=== PATIENT | male | born 1955 | race Caucasian/White ===

== ENCOUNTER 2019-06-10 01:35 | Emergency (ER) | payer MEDICAID, MEDICARE ==
--- NOTE | 2019-06-10 10:40 | RADIOLOGY REPORT (SQ) ---
EXAM DESCRIPTION: CHEST SINGLE VIEW COMPLETED DATE/TIME: 06/10/2019 10:28 am REASON FOR STUDY: altered mental status COMPARISON: AP chest 06/02/2019 EXAM PARAMETERS: NUMBER OF VIEWS: One view. TECHNIQUE: Single frontal radiographic view of the chest acquired. RADIATION DOSE: NA LIMITATIONS: None. FINDINGS: LUNGS AND PLEURA: No opacities, masses or pneumothorax. No pleural effusion. MEDIASTINUM AND HILAR STRUCTURES: No masses. Contour normal. HEART AND VASCULAR STRUCTURES: Heart normal in size. Normal vasculature. BONES: No acute findings. HARDWARE: None in the chest. OTHER: No other significant finding. IMPRESSION: NO ACUTE RADIOGRAPHIC FINDING IN THE CHEST. TECHNICAL DOCUMENTATION: JOB ID: [id number] [employer]- All Rights Reserved Reading location - IP/workstation name: [email or web address]
[2019-06-10 10:46] LABS: ABSOLUTE LYMPHOCYTES (AUTO) 0.8 10^3/uL (0.5-4.7); ABSOLUTE MONOCYTES (AUTO) 0.8 10^3/uL (0.1-1.4); ABSOLUTE NEUT (AUTO) 4.7 10^3/uL (1.7-8.2); BASOPHILS % (AUTO) 0.5 % (0-2); EOSINOPHILS % (AUTO) 0.7 % (0-6); HEMATOCRIT 35.3 % (37.9-51.0); LYMPHOCYTES % (AUTO) 12.8 % (13-45); MEAN CORPUSCULAR HEMOGLOBIN 30.3 pg (27.0-33.4); MEAN CORPUSCULAR HGB CONC 33.9 g/dL (32.0-36.0); MEAN CORPUSCULAR VOLUME 89 fl (80-97); MONOCYTES % (AUTO) 12.7 % (3-13); PLATELET COUNT 200 10^3/uL (150-450); RED BLOOD COUNT 3.95 10^6/uL (4.35-5.55); RED CELL DISTRIBUTION WIDTH 13.5 % (11.5-14.0); SEGMENTED NEUTROPHILS % (AUTO) 73.3 % (42-78); TOTAL CELLS COUNTED % (AUTO) 100 %; WHITE BLOOD COUNT 6.5 10^3/uL (4.0-10.5)
[2019-06-10 11:07] LABS: ALBUMIN 3.6 g/dL (3.5-5.0); ALKALINE PHOSPHATASE 58 U/L (38-126); ANION GAP 9 (5-19); ASPARTATE AMINO TRANSFERASE 37 U/L (17-59); BILIRUBIN,DIRECT 0.2 mg/dL (0.0-0.4); BILIRUBIN,TOTAL 0.6 mg/dL (0.2-1.3); BLOOD UREA NITROGEN 18 mg/dL (7-20); CALCIUM 8.4 mg/dL (8.4-10.2); CARBON DIOXIDE 27 mmol/L (22-30); CHLORIDE 104 mmol/L (98-107); GLUCOSE 109 mg/dL (75-110); POTASSIUM 3.7 mmol/L (3.6-5.0); TOTAL PROTEIN 6.5 g/dL (6.3-8.2)
[2019-06-10 11:08] LABS: ACETAMINOPHEN < 10 ug/mL (10-30); ALCOHOL < 10 mg/dL (NONE DETECTED); SALICYLATE < 1.0 mg/dL (2.0-20.0)
[2019-06-10 11:27] LABS: APPEARANCE,URINE CLEAR; BILIRUBIN,URINE NEGATIVE (NEGATIVE); COLOR,URINE YELLOW; GLUCOSE, URINE NEGATIVE (NEGATIVE); KETONES,URINE NEGATIVE (NEGATIVE); PROTEIN,URINE NEGATIVE (NEGATIVE); URINE SPECIFIC GRAVITY 1.019
[2019-06-10 11:42] LABS: URINE AMPHETAMINES SCREEN NEGATIVE; URINE BARBITURATES SCREEN NEGATIVE; URINE BENZODIAZEPINES SCREEN NEGATIVE; URINE COCAINE SCREEN NEGATIVE; URINE MARIJUANA (THC) SCREEN NEGATIVE; URINE METHADONE SCREEN NEGATIVE; URINE PHENCYCLIDINE SCREEN NEGATIVE
--- NOTE | 2019-06-10 12:11 | ER Document Report ---
ED General - General Chief Complaint: Altered Mental Status Stated Complaint: INSOMNIA Time Seen by Provider: 06/10/19 10:04 Notes: 63-year-old male presents from [facility] complaining of insomnia and not staying in bed. Patient has a history of bipolar, hypertension, insomnia. Per facility patient was running around, not sleeping, and was found by staff in the [place] after running outside. Patient is at baseline per paperwork. Patient has no complaints. TRAVEL OUTSIDE OF THE [place] IN LAST 30 DAYS: No - Related Data Allergies/Adverse Reactions: No Known Allergies Allergy (Unverified 06/02/19 13:57) Past Medical History - Social History Smoking Status: Unknown if Ever Smoked Family History: Reviewed & Not Pertinent Patient has suicidal ideation: No Patient has homicidal ideation: No - Past Medical History Cardiac Medical History: Reports: Hx Hypertension Musculoskeletal Medical History: Reports Hx Arthritis Psychiatric Medical History: Reports: Hx Bipolar Disorder Review of Systems - Review of Systems -: Yes ROS unobtainable due to patient's medical condition Physical Exam - Vital signs Vitals: Temp Pulse Resp BP Pulse Ox 97.9 F 72 16 96/69 L 99 06/10/19 01:36 06/10/19 01:36 06/10/19 01:36 06/10/19 01:36 06/10/19 01:36 - Notes Notes: GENERAL: Well-appearing, well-nourished and in no acute distress. HEAD: Atraumatic, normocephalic. EYES: Extraocular movements intact, sclera anicteric, conjunctiva are normal. NECK: Normal range of motion, supple without lymphadenopathy or JVD. LUNGS: Breath sounds clear to auscultation bilaterally and equal. No wheezes rales or rhonchi. HEART: Regular rate and rhythm without murmurs, rubs or gallops. ABDOMEN: Soft, nontender. No guarding, no rebound. No masses appreciated. EXTREMITIES: Normal range of motion, no pitting or edema. No clubbing or cyanosis. NEUROLOGICAL: Patient is only alert to himself. Cranial nerves II through XII grossly intact. Normal speech, normal gait. PSYCH: Normal mood, normal affect. SKIN: Abrasions noted to bilateral arms. Warm, Dry, normal turgor, no rashes or lesions noted. Course - Re-evaluation Re-evalutation: 06/10/19 nontoxic, well-appearing 63-year-old male presents from [facility] for insomnia, ability to and being found with by staff after running outside. Patient has some superficial abrasions from being in the [place]. Work- up initiated including EKG, chest x-ray, UA, lab work. 06/10/19 13:45 patient's work-up including CT of the head is reassuring. Patient to be discharged back to [facility]. Return precautions given. Patient given follow-up with primary care doctor. - Vital Signs Vital signs: Temp Pulse Resp BP Pulse Ox 99.0 F 84 16 137/65 H 93 06/10/19 07:01 06/10/19 07:01 06/10/19 07:01 06/10/19 07:01 06/10/19 07:01 - Laboratory Result Diagrams: 06/10/19 10:25 06/10/19 10:25 Laboratory results interpreted by me: 06/10/19 06/10/19 06/10/19 10:25 10:25 10:40 RBC 3.95 L Hgb 12.0 L Hct 35.3 L Lymph % (Auto) 12.8 L Urine Urobilinogen 4.0 H Salicylates < 1.0 L Acetaminophen < 10 L Discharge - Discharge Clinical Impression: Encounter for medical screening examination, Abrasion of forearm without infection Insomnia Qualifiers: Insomnia type: unspecified Qualified Code(s): G47.00 - Insomnia, unspecified Condition: Stable Disposition: HOME-SNF (ED ONLY) Additional Instructions: Your work-up today including lab work, chest x-ray, urinalysis, and CT of your head was reassuring. Please follow-up with your primary care doctor in 3 to 5 days or with clinic listed. Return to ER for any worsening symptoms, including fever, increased confusion, chest pain, shortness of breath, abdominal pain, nausea/vomiting, diarrhea, constipation, urinary symptoms, or any other symptoms that are concerning to you. Referrals: JEFFREY GUZMAN MD [COMMUNITY BASED STAFF] - Follow up in 3-5 days
--- NOTE | 2019-06-10 13:14 | RADIOLOGY REPORT (SQ) ---
EXAM DESCRIPTION: CT HEAD WITHOUT COMPLETED DATE/TIME: 06/10/2019 12:59 pm REASON FOR STUDY: AMS COMPARISON: CT of the head without contrast from 06/02/2019. TECHNIQUE: Axial images acquired through the brain without intravenous contrast. Images reviewed wi th bone, brain and subdural windows. Additional sagittal and coronal reconstructions were generated. Images stored on PACS. All CT scanners at this facility use dose modulation, iterative reconstruction, and/or weight based d osing when appropriate to reduce radiation dose to as low as reasonably achievable (ALARA). [facility]: Dose Right [facility]: CareDose [facility]: Dose Right [facility]: Teradose 4D [facility]: [employer] RADIATION DOSE: CT Rad equipment meets quality standard of care and radiation dose reduction techniq ues were employed. CTDIvol: 53.2 mGy. DLP: 1097 mGy-cm. LIMITATIONS: None. FINDINGS: There is no acute intracranial hemorrhage, vascular territorial infarct, extra-axial fluid collection, mass effect or midline shift. There is no effacement of the cerebral sulci or basal sub arachnoid cisterns. The murcia-white matter differentiation is preserved. The caliber the ventricles is concordant with the degree of sulcation. The orbits and globes are normal. There is no fracture of the calvarium. The orbits and globes are intact. There is no opacification of the paranasal sinuses. IMPRESSION: No acute intracranial abnormality. EVIDENCE OF ACUTE STROKE: NO. COMMENT: Quality ID # 436: Final reports with documentation of one or more dose reduction techniques (e.g., Automated exposure control, adjustment of the mA and/or kV according to patient size, use of iterative reconstruction technique) TECHNICAL DOCUMENTATION: JOB ID: [id number] [employer]- All Rights Reserved Reading location - IP/workstation name: [email or web address]
[2019-06-10 16:21] VITALS: BP 142/79
--- NOTE | 2019-06-10 19:28 | EKG REPORT ---
SEVERITY:- NORMAL ECG - SINUS RHYTHM : Confirmed by: Devi Vargas MD 10-Jun-2019 19:28:07
== END 2019-06-10 16:22 ==
LOC: ER 01:35
DX: G47.00 Insomnia, unspecified (principal); S50.819A Abrasion of unspecified forearm, initial encounter; S40.812A Abrasion of left upper arm, initial encounter; S40.811A Abrasion of right upper arm, initial encounter; X58.XXXA Exposure to other specified factors, initial encounter; I10 Essential (primary) hypertension
CPT/HCPCS: 36415; 51701; 70450; 71045; 80053; 80307; 81001; 83735; 84484; 85025; 93005; 93010; 99285

== ENCOUNTER → 2020-01-31 | Outpatient (CLI) | payer MEDICARE, MEDICAID ==
--- NOTE | 2020-01-31 16:46 | RADIOLOGY REPORT (SQ) ---
EXAM DESCRIPTION: CT ABD/PELVIS NO ORAL OR IV IMAGES COMPLETED DATE/TIME: 01/31/2020 4:08 pm REASON FOR STUDY: R10.9 UNSPECIFIED ABDOMINAL PAIN R10.9 UNSPECIFIED ABDOMINAL PAIN COMPARISON: None. TECHNIQUE: CT scan of the abdomen and pelvis performed without intravenous or oral contrast. Images reviewed with lung, soft tissue, and bone windows. Reconstructed coronal and sagittal MPR images revi ewed. All images stored on PACS. All CT scanners at this facility use dose modulation, iterative reconstruction, and/or weight based d osing when appropriate to reduce radiation dose to as low as reasonably achievable (ALARA). [facility]: Dose Right [facility]: CareDose [facility]: Dose Right [facility]: Teradose 4D [facility]: Smart ComQi RADIATION DOSE: mGy. LIMITATIONS: None. FINDINGS: LOWER CHEST: Small pericardial effusion. Very small bilateral pleural effusions. NON-CONTRASTED LIVER, SPLEEN, ADRENALS: The liver is somewhat hypoattenuated. No masses. Spleen and adrenal glands are normal. PANCREAS: No masses. No peripancreatic inflammatory changes. GALLBLADDER: Contracted. No stones. RIGHT KIDNEY AND URETER: No suspicious masses. Assessment limited by lack of IV contrast. No signif icant calcifications. No hydronephrosis or hydroureter. LEFT KIDNEY AND URETER: No suspicious masses. Assessment limited by lack of IV contrast. Small nono bstructing intrarenal calculus. No hydronephrosis or hydroureter. AORTA AND RETROPERITONEUM: No aneurysm. No retroperitoneal masses or adenopathy. BOWEL AND PERITONEAL CAVITY: Sigmoid diverticulosis. No acute inflammation. No obvious bowel mass. APPENDIX: Normal. PELVIS, BLADDER, AND ABDOMINAL WALL:No abnormal masses. No free fluid. Bladder normal. Small uncompl icated inguinal hernias. BONES: No significant findings. OTHER: No other significant finding. IMPRESSION: Small pericardial effusion. Minimal pleural effusions. Hepatic steatosis. Small nonob structing left intrarenal calculus. Diverticulosis coli. Uncomplicated inguinal hernias. COMMENT: Quality ID # 436: Final reports with documentation of one or more dose reduction techniques (e.g., Automated exposure control, adjustment of the mA and/or kV according to patient size, use of iterative reconstruction technique) TECHNICAL DOCUMENTATION: JOB ID: [id number] 2010 [employer]- All Rights Reserved Reading location - IP/workstation name: [email or web address]
== END ==
LOC: RAD 15:48
PROVIDERS: ATTEND Clinical Nurse Specialist Adult Health
DX: R10.9 Unspecified abdominal pain (principal); Z87.442 Personal history of urinary calculi
CPT/HCPCS: 74176

== ENCOUNTER 2020-05-20 07:36 | Inpatient (IN) | payer MEDICARE, MEDICAID ==
[2020-05-20 08:11] LABS: ABSOLUTE BASOPHILS # (AUTO) 0.1 10^3/uL (0.0-0.2); ABSOLUTE LYMPHOCYTES (AUTO) 1.7 10^3/uL (0.5-4.7); ABSOLUTE MONOCYTES (AUTO) 1.3 10^3/uL (0.1-1.4); ABSOLUTE NEUT (AUTO) 15.6 10^3/uL (1.7-8.2); BASOPHILS % (AUTO) 0.5 % (0-2); EOSINOPHILS % (AUTO) 0.1 % (0-6); HEMATOCRIT 41.9 % (37.9-51.0); HEMOGLOBIN 14.2 g/dL (13.5-17.0); LYMPHOCYTES % (AUTO) 9.1 % (13-45); MEAN CORPUSCULAR HEMOGLOBIN 29.7 pg (27.0-33.4); MEAN CORPUSCULAR HGB CONC 33.8 g/dL (32.0-36.0); MEAN CORPUSCULAR VOLUME 88 fl (80-97); MONOCYTES % (AUTO) 6.8 % (3-13); PLATELET COUNT 301 10^3/uL (150-450); RED BLOOD COUNT 4.77 10^6/uL (4.35-5.55); RED CELL DISTRIBUTION WIDTH 14.2 % (11.5-14.0); SEGMENTED NEUTROPHILS % (AUTO) 83.5 % (42-78); TOTAL CELLS COUNTED % (AUTO) 100 %; WHITE BLOOD COUNT 18.7 10^3/uL (4.0-10.5)
[2020-05-20] MEDS ORDERED: NORMAL SALINE 500 ML IV ONE (08:16)
[2020-05-20 08:33] LABS: ALBUMIN 4.2 g/dL (3.5-5.0); ALKALINE PHOSPHATASE 84 U/L (38-126); ANION GAP 10 (5-19); ASPARTATE AMINO TRANSFERASE 60 U/L (17-59); BILIRUBIN,DIRECT 0.2 mg/dL (0.0-0.4); BILIRUBIN,TOTAL 0.7 mg/dL (0.2-1.3); BLOOD UREA NITROGEN 27 mg/dL (7-20); CALCIUM 9.4 mg/dL (8.4-10.2); CARBON DIOXIDE 22 mmol/L (22-30); CHLORIDE 108 mmol/L (98-107); GLUCOSE 144 mg/dL (75-110); POTASSIUM 3.6 mmol/L (3.6-5.0); TOTAL PROTEIN 7.6 g/dL (6.3-8.2)
[2020-05-20 08:34] LABS: ALCOHOL < 10 mg/dL (NONE DETECTED)
--- NOTE | 2020-05-20 08:36 | EKG REPORT ---
SEVERITY:- NORMAL ECG - SINUS RHYTHM : Confirmed by: Keenan Khoury MD 20-May-2020 08:35:47
--- NOTE | 2020-05-20 08:58 | RADIOLOGY REPORT (SQ) ---
EXAM DESCRIPTION: CT HEAD WITHOUT IMAGES COMPLETED DATE/TIME: 05/20/2020 5:32 am REASON FOR STUDY: altered mental status COMPARISON: None. TECHNIQUE: Axial images acquired through the brain without intravenous contrast. Images reviewed wi th bone, brain and subdural windows. Additional sagittal and coronal reconstructions were generated. Images stored on PACS. All CT scanners at this facility use dose modulation, iterative reconstruction, and/or weight based d osing when appropriate to reduce radiation dose to as low as reasonably achievable (ALARA). [facility]: Dose Right [facility]: CareDose [facility]: Dose Right [facility]: Teradose 4D [facility]: Smart Skedo RADIATION DOSE: CT Rad equipment meets quality standard of care and radiation dose reduction techniq ues were employed. CTDIvol: 53.2 mGy. DLP: 1017 mGy-cm. mGy. LIMITATIONS: None. FINDINGS: VENTRICLES: Normal size and contour. CEREBRUM: No masses. No hemorrhage. No midline shift. No evidence for acute infarction. Few scatte red areas of low density in the white matter most likely chronic small vessel ischemic changes. Foca l gliosis in the left occipital lobe posterior to the posterior horn left lateral ventricle likely du e to chronic infarct. CEREBELLUM: No masses. No hemorrhage. No alteration of density. No evidence for acute infarction. EXTRAAXIAL SPACES: No fluid collections. No masses. ORBITS AND GLOBE: No intra- or extraconal masses. Normal contour of globe without masses. CALVARIUM: No fracture. PARANASAL SINUSES: No fluid or mucosal thickening. SOFT TISSUES: No mass or hematoma. OTHER: No other significant finding. IMPRESSION: 1. No acute intracranial abnormality on noncontrast CT. 2. Small chronic appearing infarct left occipital lobe. EVIDENCE OF ACUTE STROKE: NO. COMMENT: Quality ID # 436: Final reports with documentation of one or more dose reduction techniques (e.g., Automated exposure control, adjustment of the mA and/or kV according to patient size, use of iterative reconstruction technique) TECHNICAL DOCUMENTATION: JOB ID: [id number] [employer]- All Rights Reserved Reading location - IP/workstation name: [email or web address]
--- NOTE | 2020-05-20 09:03 | RADIOLOGY REPORT (SQ) ---
EXAM DESCRIPTION: ACUTE ABDOMEN SERIES IMAGES COMPLETED DATE/TIME: 05/20/2020 5:39 am REASON FOR STUDY: abd distension COMPARISON: CT abdomen pelvis 01/31/2020. NUMBER OF VIEWS: Two views. TECHNIQUE: Supine and erect/decubitus radiographic images of the abdomen acquired. LIMITATIONS: Hemidiaphragms are not fully included. FINDINGS: FREE AIR: No definite free air, though evaluation is degraded due to lack of inclusion of portions of the upper abdomen. LUNG BASES: Lung bases are not included. BOWEL GAS PATTERN: Nonspecific bowel gas pattern. There is a loop of prominent small bowel in the la teral left abdomen. Bowel gas pattern is otherwise not obstructive. Moderate stool in the visualize d colon. CALCIFICATIONS: Probable phlebolith in the left pelvis. SOFT TISSUES: No gross mass or suggestion of organomegaly. HARDWARE: None in the abdomen. BONES: No acute fracture. No worrisome bone lesions. OTHER: No other significant finding. IMPRESSION: Degraded evaluation for free air given lack of inclusion of the full upper abdomen/hemid iaphragms. Visualize bowel gas pattern is nonspecific with a single prominent loop of small bowel in the lower pole left abdomen. Bowel gas pattern is otherwise not obstructive. Moderate stool in the visualized colon TECHNICAL DOCUMENTATION: JOB ID: [id number] 2010 [employer]- All Rights Reserved Reading location - IP/workstation name: [email or web address]
[2020-05-20] MEDS ORDERED: CEFEPIME 2 GM/D5W RTU 2 GM/50 ML RTUPB IV ONE (09:28)
[2020-05-20] MEDS ORDERED: VANCOMYCIN HCL INJ 1000 MG VIAL IV ONE (09:29)
[2020-05-20] MEDS ORDERED: NORMAL SALINE 1000 ML 1,000 ML IV ONE ×2 (09:30→14:10)
[2020-05-20 10:15] LABS: APPEARANCE,URINE SLIGHTLY-CLOUDY; BILIRUBIN,URINE NEGATIVE (NEGATIVE); CALCIUM OXALATE CRYSTALS,URINE RARE /HPF; COLOR,URINE YELLOW; GLUCOSE, URINE NEGATIVE (NEGATIVE); KETONES,URINE NEGATIVE (NEGATIVE); LEUKOCYTE ESTERASE,URINE NEGATIVE (NEGATIVE); NITRITE,URINE NEGATIVE (NEGATIVE); PROTEIN,URINE NEGATIVE (NEGATIVE); URINE SPECIFIC GRAVITY 1.018; UROBILINOGEN,URINE NEGATIVE mg/dL (<2.0)
[2020-05-20 10:35] LABS: URINE AMPHETAMINES SCREEN NEGATIVE; URINE BARBITURATES SCREEN NEGATIVE; URINE BENZODIAZEPINES SCREEN NEGATIVE; URINE COCAINE SCREEN NEGATIVE; URINE MARIJUANA (THC) SCREEN NEGATIVE; URINE METHADONE SCREEN NEGATIVE; URINE PHENCYCLIDINE SCREEN NEGATIVE
[2020-05-20] MEDS ORDERED: ACETAMINOPHEN 325 MG TABLET PO PRN (13:03)
[2020-05-20] MEDS ORDERED: [UNRECOGNIZED DRUG - REMARK] IM SCH (13:15)
[2020-05-20] MEDS ORDERED: (PENDING PHARMACY ID) (Gabapentin [Gabapentin] 600 MG Tablet) PO SCH (14:00)
[2020-05-20] MEDS ORDERED: LORAZEPAM INJ 2 MG/1 ML VIAL IV ONE ×2 (14:08→15:18)
[2020-05-20] MEDS ORDERED: DIPHENHYDRAMINE HCL 50 MG/ML VIAL IV ONE (14:09)
[2020-05-20] MEDS: BACLOFEN 10 MG TABLET PO SCH ×2 (14:14→18:25)
[2020-05-20] MEDS: GABAPENTIN 300 MG CAPSULE PO SCH ×2 (14:14→23:00)
[2020-05-20] MEDS ORDERED: ARIPIPRAZOLE 5 MG TABLET GT STA (14:14)
--- NOTE | 2020-05-20 15:01 | RADIOLOGY REPORT (SQ) ---
EXAM DESCRIPTION: CT CHEST WITHOUT IMAGES COMPLETED DATE/TIME: 05/20/2020 11:48 am REASON FOR STUDY: bibasilar infiltrates COMPARISON: Single-view chest 06/10/2019. TECHNIQUE: CT scan performed of the chest without intravenous contrast. Images reviewed with lung, soft tissue and bone windows. Reconstructed coronal and sagittal MPR images reviewed. All images st ored on PACS. All CT scanners at this facility use dose modulation, iterative reconstruction, and/or weight based d osing when appropriate to reduce radiation dose to as low as reasonably achievable (ALARA). [facility]: Dose Right [facility]: CareDose [facility]: Dose Right [facility]: Teradose 4D [facility]: Smart [employer] RADIATION DOSE: CT Rad equipment meets quality standard of care and radiation dose reduction techniq ues were employed. CTDIvol: 19.3 mGy. DLP: 681 mGy-cm. mGy. LIMITATIONS: Motion artifact. FINDINGS: LUNGS AND PLEURA: Mild bilateral dependent opacities likely representing atelectasis. The re are small bilateral pleural effusions. No pneumothorax. No suspicious pulmonary nodule or mass l esion identified. HILAR AND MEDIASTINAL STRUCTURES: No identified masses or abnormal nodes. No obvious aneurysm. HEART AND VASCULAR STRUCTURES: No aneurysm. No pericardial effusion. UPPER ABDOMEN: Hepatic steatosis. THYROID AND OTHER SOFT TISSUES: Hypodense right thyroid nodule measuring approximately 1 cm. BONES: No significant finding. HARDWARE: None in the chest. OTHER: No other significant findings. IMPRESSION: 1. Small bilateral pleural effusions. Bilateral dependent opacities probably represent ing atelectasis. 2. Hepatic steatosis. TECHNICAL DOCUMENTATION: JOB ID: [id number] Quality ID # [id number]: Final reports with documentation of one or more dose reduction techniques (e.g., Au tomated exposure control, adjustment of the mA and/or kV according to patient size, use of iterative reconstruction technique) 2010 [employer]- All Rights Reserved Reading location - IP/workstation name: [email or web address]
--- NOTE | 2020-05-20 15:36 | ER Document Report ---
Entered by OLIVE MORA SCRIBE 05/20/20 0814 Acting as scribe for:ASYA CLINE MD ED General - General Chief Complaint: Altered Mental Status Stated Complaint: ALTERED MENTAL STATUS Primary Care Provider: LORY FELICIANO ANP [Primary Care Provider] - Follow up as needed Mode of Arrival: Medic Information source: Patient, Legal Guardian - [facility] Notes: This 64 year old male patient who [facility] has guardianship of presents to the emergency department today with concerns of a "shift in mental status" over the last few weeks. [facility] called and said that he has had his bipolar meds changed within the last few weeks but they are unable to state what these changes were. Patient is alert and oriented, answers questions appropriately, has no complaints. He denies any neck pain, headache, pain anywhere, fevers, chills, nausea, vomiting, or diarrhea. Patient does mention he might have a little bit of constipation. TRAVEL OUTSIDE OF THE [place] IN LAST 30 DAYS: No - Related Data Allergies/Adverse Reactions: No Known Allergies Allergy (Unverified 06/02/19 13:57) Home Medications: Lipitor, Cogentin, Buspar, Cymbalta, Tricor, [place], Zestril, Risperdal, Zoloft, Xifaran, Neurontin Past Medical History - General Information source: Patient, Legal Guardian - [facility] - Social History Smoking Status: Unknown if Ever Smoked Cigarette use (# per day): No Lives with: Family Family History: Reviewed & Not Pertinent - Past Medical History Cardiac Medical History: Reports: Hx Hypertension Musculoskeletal Medical History: Reports Hx Arthritis, Reports Other - chronic back pain Psychiatric Medical History: Reports: Hx Bipolar Disorder Surgical Hx: Negative Review of Systems - Review of Systems Constitutional: See HPI, Other - altered mental status per [facility]. denies: Chills, Fever EENT: No symptoms reported Cardiovascular: No symptoms reported Respiratory: No symptoms reported Gastrointestinal: See HPI, Constipation - +/-. denies: Abdominal pain, Diarrhea, Nausea, Vomiting Genitourinary: No symptoms reported Male Genitourinary: No symptoms reported Musculoskeletal: denies: Neck pain Skin: No symptoms reported Hematologic/Lymphatic: No symptoms reported Neurological/Psychological: denies: Headaches -: Yes All other systems reviewed and negative Physical Exam - Vital signs Vitals: Temp Pulse Resp BP Pulse Ox 98.3 F 98 16 129/73 H 92 05/20/20 07:49 05/20/20 07:49 05/20/20 07:49 05/20/20 07:49 05/20/20 07:49 - Notes Notes: Physical Exam: General: Alert, appears well. Knows he is in the hospital. Non-focal neurological exam. HEENT: Normocephalic. Atraumatic. PERRL. Extraocular movements intact. Oropharynx clear. Neck: Supple. Non-tender. Respiratory: No respiratory distress. Clear and equal breath sounds bilaterally. Cardiovascular: Regular rate and rhythm. Abdominal: Normal Inspection. Non-tender. No distension. Normal Bowel Sounds. Back: No gross abnormalities. Extremities: Moves all four extremities. Upper extremities: Normal inspection. Normal ROM. Electric Track Switch Maintainer strength 5 out of 5 bilaterally. Lower extremities: Normal inspection. No edema. Normal ROM. Able to raise both legs off the bed and hold them in the air. Neurological: Normal cognition. AAOx4. Normal speech. Psychological: Normal affect. Normal Mood. Skin: Warm. Dry. Normal color. Course - Re-evaluation Re-evalutation: 05/20/20 15:28 Patient with mental status changes of bipolar/schizophrenia and has recently had changes in medications to try to further manage his mental illness. Today we have been unable to learn exactly what changes in medications have occurred in the past 2 weeks. Patient presents because of worsening mental status changes today. Patient is a guardian of the [facility] and is a resident at [facility] which he has been there for a number of years. - Vital Signs Vital signs: Temp Pulse Resp BP Pulse Ox 98.5 F 96 22 H 148/91 H 97 05/20/20 11:06 05/20/20 08:00 05/20/20 11:00 05/20/20 11:00 05/20/20 11:00 05/20/20 15:29 Vital signs stable - Laboratory Result Diagrams: 05/20/20 07:59 05/20/20 07:50 Laboratory results interpreted by me: 05/20/20 05/20/20 07:50 07:59 WBC 18.7 H RDW 14.2 H Lymph % (Auto) 9.1 L Absolute Neuts (auto) 15.6 H Seg Neutrophils % 83.5 H Chloride 108 H BUN 27 H Creatinine 1.74 H Est GFR ( Amer) 48 L Est GFR (MDRD) Non-Af 40 L Glucose 144 H AST 60 H ALT 67 H 05/20/20 15:29 Laboratory shows a leukocytosis. And a BUN of 27 creatinine 1.7 with an acute dehydration. 05/20/20 15:29 05/20/20 07:59 05/20/20 07:50 MCV 88 fl (80-97) 05/20/20 07:59 MCH 29.7 pg (27.0-33.4) 05/20/20 07:59 MCHC 33.8 g/dL (32.0-36.0) 05/20/20 07:59 RDW 14.2 % (11.5-14.0) H 05/20/20 07:59 Seg Neutrophils % 83.5 % (42-78) H 05/20/20 07:59 Chloride 108 mmol/L (98-107) H 05/20/20 07:50 Carbon Dioxide 22 mmol/L (22-30) 05/20/20 07:50 Anion Gap 10 (5-19) 05/20/20 07:50 Est GFR ( Amer) 48 (>60) L 05/20/20 07:50 Glucose 144 mg/dL (75-110) H 05/20/20 07:50 Calcium 9.4 mg/dL (8.4-10.2) 05/20/20 07:50 Magnesium 2.2 mg/dL (1.6-2.3) 05/20/20 07:50 Total Bilirubin 0.7 mg/dL (0.2-1.3) 05/20/20 07:50 AST 60 U/L (17-59) H 05/20/20 07:50 Alkaline Phosphatase 84 U/L (38-126) 05/20/20 07:50 Total Protein 7.6 g/dL (6.3-8.2) 05/20/20 07:50 Albumin 4.2 g/dL (3.5-5.0) 05/20/20 07:50 Lipase 24.9 U/L (23-300) 05/20/20 07:50 Urine Color YELLOW 05/20/20 09:43 Urine Appearance SLIGHTLY-CLOUDY 05/20/20 09:43 Urine pH 6.0 (5.0-9.0) 05/20/20 09:43 Ur Specific [place] 1.018 05/20/20 09:43 Urine Protein NEGATIVE mg/dL (NEGATIVE) 05/20/20 09:43 Urine Glucose (UA) NEGATIVE mg/dL (NEGATIVE) 05/20/20 09:43 Urine Ketones NEGATIVE mg/dL (NEGATIVE) 05/20/20 09:43 Urine Blood NEGATIVE (NEGATIVE) 05/20/20 09:43 Urine Nitrite NEGATIVE (NEGATIVE) 05/20/20 09:43 Ur Leukocyte Esterase NEGATIVE (NEGATIVE) 05/20/20 09:43 Urine WBC (Auto) 1 /HPF 05/20/20 09:43 Urine RBC (Auto) 2 /HPF 05/20/20 09:43 05/20/20 15:32 Rapid Covid test was test was done and patient tested negative for COVID-19. - Diagnostic Test Radiology reviewed: Image reviewed, Reports reviewed Radiology results interpreted by me: 05/20/20 15:[address] 05/20/20 08:15 IMPRESSION: 1. No acute intracranial abnormality on noncontrast CT. 2. Small chronic appearing infarct left occipital lobe. EVIDENCE OF ACUTE STROKE: NO. Acute Abdomen Series 05/20/20 08:21 IMPRESSION: Degraded evaluation for free air given lack of inclusion of the full upper abdomen/hemidiaphragms. Visualize bowel gas pattern is nonspecific with a single prominent loop of small bowel in the lower pole left abdomen. Bowel gas pattern is otherwise not obstructive. Moderate stool in the visualized colon Chest CT 05/20/20 12:11 IMPRESSION: 1. Small bilateral pleural effusions. Bilateral dependent opacities probably representing atelectasis. 2. Hepatic steatosis. Head CT shows no acute intracranial abnormality. Patient has a small chronic appearing infarct in the left occipital lobe. No evidence of any acute stroke. Acute abdominal series disclose it patient has no obstructive bowel gas pattern. Nonspecific single prominent loop of small bowel in the lower pole of the left abdomen but no obstruction. Chest x-ray shows some bibasilar infiltrates questionable opacities versus atelectasis versus some inflammatory or infectious process. Chest x-ray shows small bilateral pleural effusions dependent opacities represe nting atelectasis and no evidence for any Covid infectious process noted. - EKG Interpretation by Me Additional EKG results interpreted by me: 05/20/20 08:51 Twelve-lead EKG shows normal sinus rhythm rate of 98 normal RI interval normal QRS interval normal QT interval normal axis no acute ST-T wave changes. Discharge - Discharge Clinical Impression: Mental status alteration, Bipolar disease, chronic, Leukocytosis Condition: Good Disposition: ADMITTED INPATIENT Admitting Provider: [facility] (Hospitalist) Unit Admitted: Medical Floor Referrals: LORY FELICIANO, ANP [Primary Care Provider] - Follow up as needed I personally performed the services described in the documentation, reviewed and edited the documentation which was dictated to the scribe in my presence, and it accurately records my words and actions.
--- NOTE | 2020-05-20 17:01 | PSYCHOLOGICAL NOTE ---
Psych Note - Psych Note Date seen by psych provider: 05/20/20 Time seen by psych provider: 13:05 Psych Note: Reason for Consult: altered mental status [id number] Patient is a 64 year old male admitted to the ED via EMS due to concerns for a shift in his mental status. Patient was uncertain why he was admitted to the ED and states he was unable to urinate. Patient is a poor historian. He denies suicidal ideation, plan, and intent. He denies homicidal ideation, plan, and intent. Patient is under the guardianship of [facility] and resides at [facility], an assisted living facility. Patient attempts to engage in evaluation, however cannot report any history of mental illness or recall medications. When asked about ED admittance, patient states, I had trouble with.. I need to pee. I cant. When asked about psychiatric or inpatient hi story, he states he does not think he has been inpatient. Patient is requesting to go home and requesting food. Relayed to nurse. Collateral: 1400: called [phone] and asked for On-Call Shot Polisher And Inspector. [phone] spoke to [facility] primary montessori teacher social science analyst/ social science analyst assigned to patient, Chris Lala 1413 called [facility] 2 times to [facility] regarding medications; there was no an swer at time of calls, SALLY Perez guardian reports she has been patients guardian for a few years. Prior to that, he was involved with the [employer]. Patient stopped taking care of himself and [facility] became involved and took over guardianship. Patient moved into [facility] and guardian reports she has been unable to get to the facility as often as shed like due to COVID-19. She states within the past few weeks he was treated for a UTI and has been having behavioral issues. Guardian is reporting based on reports she has received from [facility]. She did see him last week on where he seemed stable and not impaired. Guardian reports patient is typically a poor historian, even at his baseline. She reports memory issues to include having a grandson who is 3-4 years old that patient still thinks is a baby. Guardian reports history of Bipolar and Schizophrenia disorders and states he was already deemed incompetent when she took over guardianship. She also adds that she feels patient has cognitive impairments and depression. She does not know what medications have been changed in recent weeks. She denies concerns for suicidal and homicidal ideation. Denies inpatient hospitalizations since being in her guardianship, a few years. States all she knows is the am he was taken to the ED, patient was lethargic and having tremors. Patient was not oriented to place, time and situation. He believes he was sent to the ED due to issues with urinating. Mood was confused and irritable with congruent affect. He denies current suicidal and homicidal ideation, plan, and intent. Patient did not appear to be responding to internal stimuli as evidenced by fair eye contact and attempting to find answers to questions, although confused. Thought processes are not linear or organized. Patient cannot recall why he is at the ED and continues to go off topic during assessment. Intellectual abilities are estimated to be below average. Insight and judgment were poor as evidenced by not knowing what was taking place and being unable to participate in eval. Patient engages inappropriately as he cannot stay on topic and begins demanding food. Clinical Presentation: altered mental status IVC Criteria per [place] GS 122C Dangerous to others Within the relevant past the individual No has inflicted or attempted to inflict or threatened to inflict serious bodily harm on another AND No that there is a reasonable probability that this conduct will be repeated. OR No has acted in such a way as to create a substantial risk of serious bodily harm to another AND No that there is a reasonable probability that this conduct will be repeated. OR No has engaged in extreme destruction of property AND NO that there is a reasonable probability that this conduct will be repeated. Previous episodes of dangerousness to others, when applicable, may be considered when determining reasonable probability of future dangerous conduct. Clear, coge nt, and convincing evidence that an individual has committed a homicide in the relevant past is prima facie evidence of dangerousness to others. Dangerous to self Within the relevant past the individual has done any of the following: acted in such a way as to show ALL of the following: Yes The individual would be unable without care, supervision, and the continued assistance of others not otherwise available, to exercise self- control, judgment, and discretion in the conduct of the individual's daily responsibilities and social relations or to satisfy the individual's need for n ourishment, personal or medical care, group home, or self-protection and safety. however, patient is already living at an assisted living facility and has been for years; he has services in place for his needs; he is also in the custody of [facility] and has been for years AND No There is a reasonable probability of the individual suffering serious physical debilitation within the near future unless adequate treatment is given. A showing of behavior that is grossly irrational, of actions that the individual is unable to control, of behavior that is grossly inappropriate to the situation, or of other evidence of severely impaired insight and judgment shall create a prima facie inference that the individual is unable to care for himself or herself. OR No has attempted suicide or threatened suicide AND No that there is a reasonable probability of suicide unless adequate treatment is given OR No has mutilated himself or herself or attempted to mutilate himself or herself AND No that there is a reasonable probability of serious self-mutilation unless adequate treatment is given. NOTE: Previous episodes of dangerousness to self, when applicable, may be considered when determining reasonable probability of physical debilitation, suicide, or self-mutilation. Impression\plan: Patient is cleared from psychiatric services. Patient does not meet criteria for an IVC. He was admitted to the ED for concerns for a shift in his mental status. After consulting with his DSS guardian, it appears patient is at his baseline for mental health. Guardian reports baseline to include being a poor historian, in which patient was unable to report history of mental health. Patient lives at an assisted living facility and is involved in medication management services through them to maintain symptoms of his reported Bipolar and Schizophrenia disorder. Patient was able to somewhat engage, although was distracted about medical concerns and being hungry. He denies suicidal ideation, plan, and intent. He denies homicidal ideation, plan, and intent. Patient is being medically admitted to the hospital. If new mental health concerns arise or if mental status decompensates, please re-consult the behavioral health team. Dr. Florence was consulted to care management of this patient; attending physicians in agreement with recommendations and disposition.
[2020-05-20] MEDS ORDERED: NORMAL SALINE 1000 ML 1,000 ML IV PRN (17:06)
[2020-05-20] MEDS ORDERED: BISACODYL 5 MG TABEC PO ONE (17:43)
--- NOTE | 2020-05-20 17:43 | PDOC H&P ---
History of Present Illness Admission Date/PCP: 05/20/20 16:29 TUNDE VO Patient complains of: AMS History of Present Illness: MICHAELA GUIDRY is a 64 year old male with PMH of schizophrenia, bipolar disorder, HTN, HLD, obesity and chronic back pain who is under guardianship of [facility] and resides at [facility], an assisted living facility. Patient was agitated in the ED and has received several doses of IV ativan + antipsychotics. I was unable to wake him up to question him myself, so history was gathered from ED physician and psychiatry team. Per psychiatry note: "Chris, [facility] guardian, reports she has been patients guard deshaun for a few years. Prior to that, he was involved with the [employer]. Patient stopped taking care of himself and [employer] became involved and took over guardianship. Patient moved into [facility] and guardian reports she has been unable to get to the facility as often as shed like due to COVID-19. She states within the past few weeks he was treated for a UTI and has been having behavioral issues. Guardian is reporting based on reports she has received from [facility]. She did see him last week on , where he seemed stable and not impaired. Guardian reports patient is typically a poor historian, even at his baseline. She reports memory issues to include having a grandson who is 3-4 years old that patient still thinks is a baby. Guardian reports history of Bipolar and Schizophrenia disorders and states he was already deemed incompetent when she took over guardianship. She also adds that she feels patient has cognitive impairments and depression. She does not know what medications have been changed in recent weeks. She denies concerns for suicidal and homicidal ideation. Denies inpatient hospitalizations since being in her guardianship, a few years. States all she knows is the am he was taken to the ED, patient was lethargic and having tremors." In the ED, VS were largely within normal limits. He has remained afebrile and HD-stable. CBC showed leukocytosis to 18.7 with neutrophilic prominence, CMP was notable for elevated BUN/Cr and LFT elevation. UA appeared benign, UDS was positive for opioids (which he is prescribed), and ETOH level was undetectable. Head CT showed no acute findings. Chest CT showed small bilateral pleural effusions and atelectasis as well as hepatic steatosis. Acute abdominal series was notable only for moderate stool. ED course was complicated by confusion and AMS, which led the patient to repeatedly pulls at his IV and telemetry, and try to get out of bed. He was thus sedated with Ativan IV. He also received 2.5 L IVF boluses. Psych was consulted. Past Medical History Cardiac Medical History: Reports: Hyperlipidema, Hypertension Endocrine Medical History: Reports: Obesity Musculoskeltal Medical History: Reports: Arthritis, Other - chronic back pain Psychiatric Medical History: Reports: Bipolar Disorder Past Surgical History Past Surgical History: Reports: None Social History Information Source: Outside Facility Records Lives with: Other - RYLEE Smoking Status: Unknown if Ever Smoked Frequency of Alcohol Use: None Hx Recreational Drug Use: No Drugs: None Hx Prescription Drug Abuse: No - Advance Directive Resuscitation Status: Full Code Family History Family History: Reviewed & Not Pertinent Parental Family History Reviewed: Yes Children Family History Reviewed: Yes Sibling(s) Family History Reviewed.: Yes Medication/Allergy Home Medications: Invega Sustenna 156 mg IM Q30D 06/02/19 Acetaminophen [Tylenol 325 mg Tablet] 650 mg PO Q4HP PRN 05/20/20 Aripiprazole [Abilify 5 mg Tablet] 5 mg PO DAILY 05/20/20 Atorvastatin Calcium [Lipitor 20 mg Tablet] 20 mg PO DAILY 05/20/20 Baclofen [Baclofen 10 mg Tablet] 10 mg PO TID 05/20/20 Benztropine Mesylate [Cogentin 1 mg Tablet] 1 tab PO BID 05/20/20 Buspirone HCl 15 mg PO BID 05/20/20 Fenofibrate Nanocrystallized [Fenofibrate] 145 mg PO DAILY 05/20/20 Gabapentin 600 mg PO TID 05/20/20 Hydrochlorothiazide 12.5 mg PO DAILY 05/20/20 Hydrocodone/Acetaminophen [[place] 10-325 mg Tablet] 1 tab PO QID 05/20/20 Lactulose 10 gm PO DAILY 05/20/20 Lisinopril [Zestril] 40 mg PO DAILY 05/20/20 Lorazepam 0.5 mg PO BID 05/20/20 Naproxen 500 mg PO BID 05/20/20 Oxybutynin Chloride [Ditropan 5 Mg Tablet] 5 mg PO DAILY 05/20/20 Rifaximin [Xifaxan 550 Mg Tablet] 550 mg PO BID 05/20/20 Allergies/Adverse Reactions: No Known Allergies Allergy (Unverified 06/02/19 13:57) Review of Systems ROS unobtainable: Due to mental status Physical Exam Vital Signs: Temp Pulse Resp BP Pulse Ox 98.5 F 96 22 H 148/91 H 97 05/20/20 11:06 05/20/20 08:00 05/20/20 11:00 05/20/20 11:00 05/20/20 11:00 Intake & Output 05/19/20 05/20/20 05/21/20 06:59 06:59 06:59 Intake Total 1550 Balance 1550 Weight 93 kg General appearance: PRESENT: no acute distress, obese Head exam: PRESENT: atraumatic Eye exam: ABSENT: scleral icterus Mouth exam: PRESENT: moist Throat exam: ABSENT: post pharyngeal erythema Neck exam: ABSENT: JVD Respiratory exam: PRESENT: clear to auscultation cristina, unlabored Cardiovascular exam: PRESENT: RRR GI/Abdominal exam: PRESENT: distended, normal bowel sounds, soft. ABSENT: firm, guarding, Lara's sign, rebound, rigid, tenderness Gentrourinary exam: ABSENT: indwelling catheter Extremities exam: ABSENT: pedal edema Musculoskeletal exam: ABSENT: deformity Neurological exam: PRESENT: altered Skin exam: ABSENT: jaundice, petechiae, vesicles Results Laboratory Results: 05/20/20 07:59 05/20/20 07:50 05/20/20 05/20/20 05/20/20 07:50 07:50 07:59 WBC 18.7 H RBC 4.77 Hgb 14.2 Hct 41.9 MCV 88 MCH 29.7 MCHC 33.8 RDW 14.2 H Plt Count 301 Seg Neutrophils % 83.5 H Sodium 139.8 Potassium 3.6 Chloride 108 H Carbon Dioxide 22 Anion Gap 10 BUN 27 H Creatinine 1.74 H Est GFR ( Amer) 48 L Glucose 144 H Calcium 9.4 Magnesium 2.2 Total Bilirubin 0.7 AST 60 H Alkaline Phosphatase 84 Ammonia Total Protein 7.6 Albumin 4.2 Lipase 24.9 Urine Color Urine Appearance Urine pH Ur Specific [place] Urine Protein Urine Glucose (UA) Urine Ketones Urine Blood Urine Nitrite Ur Leukocyte Esterase Urine WBC (Auto) Urine RBC (Auto) 05/20/20 05/20/20 09:43 14:55 WBC RBC Hgb Hct MCV MCH MCHC RDW Plt Count Seg Neutrophils % Sodium Potassium Chloride Carbon Dioxide Anion Gap BUN Creatinine Est GFR ( Amer) Glucose Calcium Magnesium Total Bilirubin AST Alkaline Phosphatase Ammonia < 8.7 L Total Protein Albumin Lipase Urine Color YELLOW Urine Appearance SLIGHTLY-CLOUDY Urine pH 6.0 Ur Specific [place] 1.018 Urine Protein NEGATIVE Urine Glucose (UA) NEGATIVE Urine Ketones NEGATIVE Urine Blood NEGATIVE Urine Nitrite NEGATIVE Ur Leukocyte Esterase NEGATIVE Urine WBC (Auto) 1 Urine RBC (Auto) 2 Impressions: Head CT 05/20/20 08:15 IMPRESSION: 1. No acute intracranial abnormality on noncontrast CT. 2. Small chronic appearing infarct left occipital lobe. EVIDENCE OF ACUTE STROKE: NO. Acute Abdomen Series 05/20/20 08:21 IMPRESSION: Degraded evaluation for free air given lack of inclusion of the full upper abdomen/hemidiaphragms. Visualize bowel gas pattern is nonspecific with a single prominent loop of small bowel in the lower pole left abdomen. Bowel gas pattern is otherwise not obstructive. Moderate stool in the visualized colon Chest CT 05/20/20 12:11 IMPRESSION: 1. Small bilateral pleural effusions. Bilateral dependent opacities probably representing atelectasis. 2. Hepatic steatosis. Assessment and Plan - Diagnosis (1) Schizophrenia Qualifiers: Schizophrenia type: unspecified Qualified Code(s): F20.9 - Schizophrenia, unspecified Is this a current diagnosis for this admission?: Yes (2) At risk for polypharmacy Is this a current diagnosis for this admission?: Yes (3) Hypertension Qualifiers: Hypertension type: essential hypertension Qualified Code(s): I10 - Essent ial (primary) hypertension Is this a current diagnosis for this admission?: Yes (4) Hyperlipidemia Qualifiers: Hyperlipidemia type: unspecified Qualified Code(s): E78.5 - Hyperlipidemia, unspecified Is this a current diagnosis for this admission?: Yes (5) Obesity (BMI 30.0-34.9) Is this a current diagnosis for this admission?: Yes (6) CRISTINA (acute kidney injury) Is this a current diagnosis for this admission?: Yes (7) Elevated LFTs Is this a current diagnosis for this admission?: Yes (8) Bipolar disease, chronic Is this a current diagnosis for this admission?: Yes (9) Leukocytosis Qualifiers: Leukocytosis type: unspecified Qualified Code(s): D72.829 - Elevated white blood cell count, unspecified Is this a current diagnosis for this admission?: Yes (10) Mental status alteration Qualifiers: Altered mental status type: disorientation Qualified Code(s): R41.0 - Disorientation, unspecified Is this a current diagnosis for this admission?: Yes (11) Constipation Qualifiers: Constipation type: slow transit constipation Qualified Code(s): K59.01 - Slow transit constipation Is this a current diagnosis for this admission?: Yes - Plan Summary Summary: AMS: I have been unable to determine whether patient is indeed altered or at his baseline mental status (currently sleeping after Ativan administration). I have been unable to reach the facility where he resides to figure out what mental status changes he has had over the last few weeks and what medical changes have taken place. He is certainly at risk for polypharmacy. Leukocytosis may be an indication of infection, which may have results in AMS, although he has no clear evidence of a source on labs/imaging. - sitter for safety - restart home medications - continue to monitor closely - fall precautions Leukocytosis: unknown etiology. May be due to stress of hospitalization. He has no evidence of a clear source on labs/imaging. He reportedly recently had a course of oral antibiotics for treatment of UTI. UA here appears benign. - order BCx - influenza/RSV/Covid negative - s/p cefepime/vancomycin in ED - hold off on further antibiotics at this time - repeat CBC in AM CRISTINA: unclear etiology. He does not seem particularly dehydrated on exam, although I only saw him after he received 2.5 L IVF in the ED. He reportedly told the psych team that he "couldn't pee" so may be due to retention. - abdominal US unremarkable - kidney US ordered - if not urinating, perform bladder scan and straight cath if retaining >400 mL urine - repeat CMP in AM LFT elevation: although none of his outside records mention any prior liver disease, he is on lactulose and rifaximin chronically. He had hepatic steatosis on CT. Ammonia is undetectable. Could be due to combination atorvastatin/fenofibrate therapy. - repeat CMP in AM - hold home atorvastatin/fenofibrate given LFT elevation HTN - hold home lisinopril/HCTZ given CRISTINA HLD - hold home atorvastatin/fenofibrate given LFT elevation Constipation - restart home lactulose - given dulcolax, senna, miralax DVT ppx: heparin - Time Time Spent with patient: 35 or more minutes Anticipated Discharge Disposition: Assisted Living with Home Health Services Anticipated Discharge Timeframe: within 48 hours
[2020-05-20] MEDS ORDERED: BUSPIRONE HCL 15 MG PO SCH (18:00)
[2020-05-20] MEDS ORDERED: NAPROXEN 250 MG TABLET PO SCH (18:00)
[2020-05-20] MEDS ORDERED: NAPROXEN 500 MG PO SCH (18:00)
[2020-05-20] MEDS ORDERED: BENZTROPINE MESYLATE 1 MG TABLET PO SCH (18:00)
[2020-05-20] MEDS: LORAZEPAM 0.5 MG TABLET PO SCH (18:24)
[2020-05-20] MEDS: BUSPIRONE HCL 10 MG TABLET PO SCH (18:26)
[2020-05-20] MEDS: BENZTROPINE MESYLATE 1 MG TABLET PO SCH (18:26)
[2020-05-20] MEDS: POLYETHYLENE GLYCOL 3350 POWDER 17 GM/1 PACKET PO SCH (18:27)
[2020-05-20] MEDS: HYDROCODONE/ACETAMINOPHEN 10-325 MG TABLET PO SCH ×2 (18:27→23:01)
[2020-05-20] MEDS: RISPERIDONE 1 MG TABLET PO SCH (18:27)
[2020-05-20] MEDS: RIFAXIMIN 550 MG TABLET PO SCH (18:28)
[2020-05-20] MEDS: SENNOSIDES/DOCUSATE 8.6-50 MG 1 EACH TABLET PO SCH (18:28)
[2020-05-20] MEDS: HEPARIN SOD (PORCINE) 5,000 UNIT/ML 1 ML VIAL SUBCUT SCH (23:00)
[2020-05-21 05:39] LABS: HEMATOCRIT 36.2 % (37.9-51.0); HEMOGLOBIN 12.5 g/dL (13.5-17.0); MEAN CORPUSCULAR HEMOGLOBIN 30.3 pg (27.0-33.4); MEAN CORPUSCULAR HGB CONC 34.4 g/dL (32.0-36.0); MEAN CORPUSCULAR VOLUME 88 fl (80-97); PLATELET COUNT 230 10^3/uL (150-450); RED BLOOD COUNT 4.11 10^6/uL (4.35-5.55); WHITE BLOOD COUNT 8.4 10^3/uL (4.0-10.5)
[2020-05-21 06:01] LABS: ALBUMIN 3.4 g/dL (3.5-5.0); ALKALINE PHOSPHATASE 69 U/L (38-126); ANION GAP 7 (5-19); ASPARTATE AMINO TRANSFERASE 69 U/L (17-59); BILIRUBIN,DIRECT 0.2 mg/dL (0.0-0.4); BILIRUBIN,TOTAL 0.6 mg/dL (0.2-1.3); BLOOD UREA NITROGEN 21 mg/dL (7-20); CALCIUM 8.9 mg/dL (8.4-10.2); CARBON DIOXIDE 23 mmol/L (22-30); CHLORIDE 110 mmol/L (98-107); GLUCOSE 104 mg/dL (75-110); PHOSPHORUS 3.6 mg/dL (2.5-4.5); POTASSIUM 3.8 mmol/L (3.6-5.0); TOTAL PROTEIN 6.2 g/dL (6.3-8.2)
[2020-05-21] MEDS: HEPARIN SOD (PORCINE) 5,000 UNIT/ML 1 ML VIAL SUBCUT SCH ×3 (06:22→22:04)
[2020-05-21] MEDS: GABAPENTIN 300 MG CAPSULE PO SCH ×3 (06:22→22:04)
[2020-05-21] MEDS: HYDROCODONE/ACETAMINOPHEN 10-325 MG TABLET PO SCH ×3 (06:22→17:31)
[2020-05-21] MEDS: ARIPIPRAZOLE 5 MG TABLET PO SCH (09:11)
[2020-05-21] MEDS: LORAZEPAM 0.5 MG TABLET PO SCH ×2 (09:11→17:30)
[2020-05-21] MEDS: BENZTROPINE MESYLATE 1 MG TABLET PO SCH ×2 (09:12→17:31)
[2020-05-21] MEDS: RIFAXIMIN 550 MG TABLET PO SCH ×2 (09:12→17:31)
[2020-05-21] MEDS: BACLOFEN 10 MG TABLET PO SCH ×3 (09:12→17:31)
[2020-05-21] MEDS: DULOXETINE HCL 30 MG CAPSULE.DR PO SCH (09:12)
[2020-05-21] MEDS: BUSPIRONE HCL 10 MG TABLET PO SCH ×2 (09:12→17:31)
[2020-05-21] MEDS: SENNOSIDES/DOCUSATE 8.6-50 MG 1 EACH TABLET PO SCH ×2 (09:13→17:31)
[2020-05-21] MEDS: LACTULOSE SYRUP 20 GM/30 ML UDCUP PO SCH (09:13)
[2020-05-21] MEDS: LISINOPRIL 10 MG TABLET PO SCH (09:13)
[2020-05-21] MEDS: RISPERIDONE 1 MG TABLET PO SCH ×2 (09:13→17:31)
[2020-05-21] MEDS: POLYETHYLENE GLYCOL 3350 POWDER 17 GM/1 PACKET PO SCH ×2 (09:14→17:30)
--- NOTE | 2020-05-21 09:19 | RADIOLOGY REPORT (SQ) ---
EXAM DESCRIPTION: U/S ABDOMEN COMPLETE W/DOPPLER IMAGES COMPLETED DATE/TIME: 05/21/2020 8:30 am REASON FOR STUDY: high LFTs and kidney dysfunction COMPARISON: None. TECHNIQUE: Dynamic and static grayscale images acquired of the abdomen and recorded on PACS. Additio nal selected color Doppler and spectral images recorded. Note: Study does not meet criteria for complete doppler/duplex scan LIMITATIONS: None. FINDINGS: PANCREAS: The visualized portions of the pancreas appear normal. LIVER: The echogenicity of the hepatic parenchyma is increased. In the left hepatic lobe there is a hypoechoic mass that measures 2 x 1.3 x 1.5 cm. LIVER VASCULATURE: Normal hepatopetal directional flow in the main portal vein. GALLBLADDER: The gallbladder wall measures 1.4 mm in thickness. There is no cholelithiasis, sludge o r pericholecystic fluid. ULTRASOUND-DETECTED ZENDEJAS'S SIGN: Negative. INTRAHEPATIC DUCTS AND COMMON DUCT: The common bile duct measures 4 mm in diameter. There is no dila tation of the intrahepatic ducts. INFERIOR VENA CAVA: Not assessed. AORTA: No aneurysm. RIGHT KIDNEY: The right kidney measures 12.3 cm in length. There is no hydronephrosis. LEFT KIDNEY: The left kidney measures 10.7 cm in length. There is no hydronephrosis. SPLEEN: The spleen measures 14.1 cm in length. PERITONEAL AND PLEURAL SPACES: No ascites or effusions. OTHER: No other findings. IMPRESSION: 1. Increased echogenicity of the hepatic parenchyma suggestive of underlying diffuse he patocellular disease most commonly hepatic steatosis. 2. 2 x 1.3 x 1.5 cm hypoechoic mass in the left hepatic lobe. Further evaluation with a contrast-en hanced liver protocol MRI or CT is recommended. TECHNICAL DOCUMENTATION: JOB ID: [id number] 2010 [employer]- All Rights Reserved Reading location - IP/workstation name: [email or web address]
[2020-05-21] MEDS: OXYBUTYNIN CHLORIDE 5 MG TABLET PO SCH (09:43)
[2020-05-21] MEDS ORDERED: LACTULOSE 10 GM/15 ML PO SCH (10:00)
[2020-05-21] MEDS ORDERED: (PENDING PHARMACY ID) (Lisinopril [Zestril] 40 MG Tablet) PO SCH (10:00)
[2020-05-21] MEDS ORDERED: FENOFIBRATE NANOCRYSTALLIZED 145 MG TABLET PO SCH (10:00)
[2020-05-21] MEDS ORDERED: LACTULOSE SYRUP 20 GM/30 ML UDCUP PO SCH (10:00)
[2020-05-21] MEDS ORDERED: ATORVASTATIN CALCIUM 20 MG TABLET PO SCH (10:00)
[2020-05-21] MEDS ORDERED: HYDROCHLOROTHIAZIDE 12.5 MG TABLET PO SCH (10:00)
[2020-05-21] MEDS ORDERED: LISINOPRIL 10 MG TABLET PO SCH (10:00)
--- NOTE | 2020-05-21 17:25 | PDOC PROGRESS REPORT ---
Subjective Date:: 05/21/20 Subjective:: NAEO. Today, patient is awake, alert, pleasant. He knows that he is at [facility] but states that he does not know why he is here. He tells me that his "nerves have been fried" recently. He has been tolerating excellent oral intake and is ambulating without assistance. He denies SOB, CP, abd pain, WHITE. He does endorse chronic low back pain that has been ongoing "forever." Reason For Visit: AMS, CRISTINA, LEUKOCYTOSIS Physical Exam Vital Signs: Temp Pulse Resp BP Pulse Ox 98.2 F 86 19 142/95 H 100 05/21/20 11:58 05/21/20 11:58 05/21/20 11:58 05/21/20 11:58 05/21/20 11:58 Intake & Output 05/20/20 05/21/20 05/22/20 06:59 06:59 06:59 Intake Total 2750 120 Balance 2750 120 Weight 88.7 kg General appearance: PRESENT: no acute distress, cooperative, obese Eye exam: ABSENT: scleral icterus Mouth exam: PRESENT: moist Throat exam: ABSENT: post pharyngeal erythema Neck exam: ABSENT: JVD Respiratory exam: PRESENT: clear to auscultation cristina, unlabored. ABSENT: wheezes Cardiovascular exam: PRESENT: RRR GI/Abdominal exam: PRESENT: normal bowel sounds, soft. ABSENT: guarding, mass, Lara's sign, tenderness Gentrourinary exam: ABSENT: indwelling catheter Extremities exam: ABSENT: pedal edema Musculoskeletal exam: PRESENT: ambulatory Neurological exam: PRESENT: alert, awake, oriented to person, oriented to place, oriented to time Psychiatric exam: PRESENT: flat affect. ABSENT: anxious, suicidal ideation Focused psych exam: ABSENT: catatonic, psychomotor agitation, restlessness Skin exam: ABSENT: rash Results Laboratory Results: 05/21/20 05:18 05/21/20 05:18 05/21/20 05/21/20 05/21/20 05:18 05:18 05:18 WBC 8.4 RBC 4.11 L Hgb 12.5 L Hct 36.2 L MCV 88 MCH 30.3 MCHC 34.4 RDW 14.0 Plt Count 230 Sodium 139.6 Potassium 3.8 Chloride 110 H Carbon Dioxide 23 Anion Gap 7 BUN 21 H Creatinine 0.92 Est GFR ( Amer) > 60 Glucose 104 Calcium 8.9 Phosphorus 3.6 Magnesium 2.2 Total Bilirubin 0.6 AST 69 H Alkaline Phosphatase 69 Total Protein 6.2 L Albumin 3.4 L TSH 3.23 Impressions: Head CT 05/20/20 08:15 IMPRESSION: 1. No acute intracranial abnormality on noncontrast CT. 2. Small chronic appearing infarct left occipital lobe. EVIDENCE OF ACUTE STROKE: NO. Acute Abdomen Series 05/20/20 08:21 IMPRESSION: Degraded evaluation for free air given lack of inclusion of the full upper abdomen/hemidiaphragms. Visualize bowel gas pattern is nonspecific with a single prominent loop of small bowel in the lower pole left abdomen. Bowel gas pattern is otherwise not obstructive. Moderate stool in the visua lized colon Chest CT 05/20/20 12:11 IMPRESSION: 1. Small bilateral pleural effusions. Bilateral dependent opacities probably representing atelectasis. 2. Hepatic steatosis. Abdomen Ultrasound 05/21/20 00:00 IMPRESSION: 1. Increased echogenicity of the hepatic parenchyma suggestive of underlying diffuse hepatocellular disease most commonly hepatic steatosis. 2. 2 x 1.3 x 1.5 cm hypoechoic mass in the left hepatic lobe. Further ev aluation with a contrast-enhanced liver protocol MRI or CT is recommended. Assessment and Plan - Diagnosis (1) Schizophrenia Qualifiers: Schizophrenia type: unspecified Qualified Code(s): F20.9 - Schizophrenia, unspecified Is this a current diagnosis for this admission?: Yes (2) At risk for polypharmacy Is this a current diagnosis for this admission?: Yes (3) Hypertension Qualifiers: Hypertension type: essential hypertension Qualified Code(s): I10 - Essential (primary) hypertension Is this a current diagnosis for this admission?: Yes (4) Hyperlipidemia Qualifiers: Hyperlipidemia type: unspecified Qualified Code(s): E78.5 - Hyperlipidemia, unspecified Is this a current diagnosis for this admission?: Yes (5) Obesity (BMI 30.0-34.9) Is this a current diagnosis for this admission?: Yes (6) CRISTINA (acute kidney injury) Is this a current diagnosis for this admission?: Yes (7) Elevated LFTs Is this a current diagnosis for this admission?: Yes (8) Bipolar disease, chronic Is this a current diagnosis for this admission?: Yes (9) Leukocytosis Qualifiers: Leukocytosis type: unspecified Qualified Code(s): D72.829 - Elevated white blood cell count, unspecified Is this a current diagnosis for this admission?: Yes (10) Mental status alteration Qualifiers: Altered mental status type: disorientation Qualified Code(s): R41.0 - Disorientation, unspecified Is this a current diagnosis for this admission?: Yes (11) Constipation Qualifiers: Constipation type: slow transit constipation Qualified Code(s): K59.01 - Slow transit constipation Is this a current diagnosis for this admission?: Yes (12) Dehydration Is this a current diagnosis for this admission?: Yes - Plan Summary Summary: Concern for possible AMS: He appears to be at his baseline mental status; he is A&Ox3 and, much like myself, confused as to why he was sent to the ED yesterday. He has had no indication of infection thus far. He has a sitter for safety, although this seems unnecessary at this point given that he is so pleasant today. Confusion may have been due to dehydration, which has now been treated. - doing well on home medications - continue to monitor x24 hours, if remains stable, DC back to [facility] tomorrow morning Leukocytosis: unknown etiology. May have been due to stress of hospitalization. He has had no evidence of a source of infection on labs/imaging. He reportedly recently had a course of oral antibiotics for treatment of UTI. UA here appears completely benign. BCx x2 show no growth to date. Influenza/RSV/Covid negative. Elevated WBC/RBC/PLT on admission was likely due to hemoconcentration and resolved with IVF administration. No need for further antibiotic therapy at this time. CRISTINA: due to dehydration and resolved after 2.5 L IVF in the ED. He reportedly told the psych team that he "couldn't pee" but he has had no evidence of urinary retention. Abdominal US showed normal kidneys/ureters. LFT elevation: although none of his outside records mention any prior liver disease, he is on lactulose and rifaximin chronically. He had hepatic steatosis on CT and abdominal US. Ammonia is undetectable. Could be due to combination atorvastatin/fenofibrate therapy. - HOLD home atorvastatin/fenofibrate given LFT elevation - repeat CMP in 4 weeks - hepatitis panel pending HTN - restart home lisinopril - hold home HCTZ given recent CRISTINA/dehydration HLD - hold home atorvastatin/fenofibrate given LFT elevation Constipation - restart home lactulose - resolved with dulcolax, senna, miralax DVT ppx: heparin - Time Time Spent with patient: 35 or more minutes Anticipated Discharge Disposition: Assisted Living with Home Health Services Anticipated Discharge Timeframe: within 24 hours
[2020-05-22] MEDS: HYDROCODONE/ACETAMINOPHEN 10-325 MG TABLET PO SCH ×2 (05:16)
[2020-05-22] MEDS: HEPARIN SOD (PORCINE) 5,000 UNIT/ML 1 ML VIAL SUBCUT SCH (05:16)
[2020-05-22] MEDS: GABAPENTIN 300 MG CAPSULE PO SCH (05:16)
[2020-05-22 06:37] LABS: HEPATITS B SURFACE ANTIGEN Negative (Negative)
[2020-05-22 06:45] LABS: HEPATITIS C VIRUS ANTIBODY <0.1 s/co ratio (0.0-0.9)
[2020-05-22] MEDS: POLYETHYLENE GLYCOL 3350 POWDER 17 GM/1 PACKET PO SCH (09:17)
[2020-05-22] MEDS: LORAZEPAM 0.5 MG TABLET PO SCH (09:18)
[2020-05-22] MEDS: SENNOSIDES/DOCUSATE 8.6-50 MG 1 EACH TABLET PO SCH (09:18)
[2020-05-22] MEDS: LISINOPRIL 10 MG TABLET PO SCH (09:21)
[2020-05-22] MEDS: DULOXETINE HCL 30 MG CAPSULE.DR PO SCH (09:21)
[2020-05-22] MEDS: BENZTROPINE MESYLATE 1 MG TABLET PO SCH (09:22)
[2020-05-22] MEDS: BUSPIRONE HCL 10 MG TABLET PO SCH (09:22)
[2020-05-22] MEDS: ARIPIPRAZOLE 5 MG TABLET PO SCH (09:22)
[2020-05-22] MEDS: BACLOFEN 10 MG TABLET PO SCH (09:22)
[2020-05-22] MEDS: RISPERIDONE 1 MG TABLET PO SCH (09:23)
[2020-05-22] MEDS: RIFAXIMIN 550 MG TABLET PO SCH (09:23)
[2020-05-22] MEDS: OXYBUTYNIN CHLORIDE 5 MG TABLET PO SCH (09:23)
[2020-05-22] MEDS: LACTULOSE SYRUP 20 GM/30 ML UDCUP PO SCH (09:23)
--- NOTE | 2020-05-22 09:25 | PDOC DISCHARGE SUMMARY ---
Impression - Admit/DC Date/PCP Admission Date/Primary Care Provider: 05/20/20 16:29 TUNDE VO Discharge Date: 05/22/20 - Discharge Diagnosis (1) Schizophrenia Is this a current diagnosis for this admission?: Yes (2) At risk for polypharmacy Is this a current diagnosis for this admission?: Yes (3) Hypertension Is this a current diagnosis for this admission?: Yes (4) Hyperlipidemia Is this a current diagnosis for this admission?: Yes (5) Obesity (BMI 30.0-34.9) Is this a current diagnosis for this admission?: Yes (6) CRISTINA (acute kidney injury) Is this a current diagnosis for this admission?: Yes (7) Elevated LFTs Is this a current diagnosis for this admission?: Yes (8) Bipolar disease, chronic Is this a current diagnosis for this admission?: Yes (9) Leukocytosis Is this a current diagnosis for this admission?: Yes (10) Mental status alteration Is this a current diagnosis for this admission?: Yes (11) Constipation Is this a current diagnosis for this admission?: Yes (12) Dehydration Is this a current diagnosis for this admission?: Yes - Assessment Summary: MICHAELA GUIDRY is a 64 year old male with PMH of schizophrenia, bipolar disorder, HTN, HLD, obesity and chronic back pain who is under guardianship of [facility] and resides at [facility], an assisted living facility. He presented on 05/20/2020 for AMS. Per psychiatry note: "Chris, DSS guardian, reports she has been patients guardian for a few years. Prior to that, he was involved with the [employer]. Bobbi ent stopped taking care of himself and [facility] became involved and took over guardianship. Patient moved into [facility] and guardian reports she has been unable to get to the facility as often as shed like due to COVID-19. She states within the past few weeks he was treated for a UTI and has been having behavioral issues. Guardian is reporting based on reports she has received from [facility]. She did see him last week on , where he seemed stable and not impaired. Guardian reports patient is typically a poor historian, even at his baseline. Guardian reports history of Bipolar and Schizophrenia disorders and states he was already deemed incompetent when she took over guardianship. She also adds that she feels patient has cognitive impairments and depression. She does not know what medications have been changed in recent weeks. She denies concerns for suicidal and homicidal ideation. Denies inpatient hospitalizations since being in her guardianship, a few years. States all she knows is the AM, he was taken to the ED, patient was lethargic and having tremors." In the ED, VS were largely within normal limits. He has remained afebrile and hemodynamically stable. CBC showed leukocytosis to 18K with neutrophilic prominence, CMP was notable for elevated BUN/Cr and LFT elevation. UA appeared benign, UDS was positive for opioids (which he is prescribed), and ETOH level was undetectable. Head CT showed no acute findings. Chest CT showed small bilateral pleural effusions and atelectasis as well as hepatic steatosis. Acute abdominal series was notable only for moderate stool. ED course was complicated by confusion and AMS, which led the patient to repeatedly pull at his IV and telemetry, and try to get out of bed. He was thus sedated with Ativan IV. He also received 2.5 L IVF boluses. Psych was consulted. Concern for possible AMS: after waking up from Ativan (administered in the ED), he has appeared to be at his baseline mental status; he is A&Ox3 and, much like myself, confused as to why he was sent to the ED in the first place. He has had no indication of infection thus far. His confusion at his [facility] may have been due to dehydration (he is prescribed a diuretic), which has now been treated. He has continued to do well on his home doses of psychiatric medications, none of which were changed. He has had no further evidence of AMS. Leukocytosis: unknown etiology. May have been due to stress of hospitalization. He has had no evidence of a source of infection on labs/imaging. He reportedly recently had a course of oral antibiotics for treatment of UTI. UA here appears completely benign. BCx x2 showed no growth to date. Influenza/RSV/Covid negative. Elevated WBC/RBC/PLT on admission was likely due to hemoconcentration and resolved with IVF administration. No need for further antibiotic therapy at this time. CRISTINA: due to dehydration and resolved after 2.5 L IVF in the ED. He reportedly told the psych team that he "couldn't pee" but he has had no evidence of urinary retention. Abdominal US showed normal kidneys/ureters. LFT elevation: although none of his outside records mention any prior liver disease, he is on lactulose and rifaximin chronically. He had hepatic steatosis on CT and abdominal US. Ammonia was undetectable. Hepatitis panel was normal/negative. This could be due to combination atorvastatin/fenofibrate therapy or hepatic steatosis, so his home fenofibrate has been discontinued. Recommend repeat CMP in 4 weeks. Left Hepatic Lobe Mass: abdominal US showed a small 2 x 1.3 x 1.5 cm hypoechoic mass in the left hepatic lobe. He should have further follow up as outpatient with GI, which we do not have here in this hospital. He would benefit from further outpatient work up with an enhanced liver protocol MRI or CT, if within goals of care. HTN: his home HCTZ was discontinued given evidence of CRISTINA/dehydration on initial labs. If he needs another agent added to his regimen to control BP, recommend to start amlodipine 5 mg daily instead of a diuretic. HLD: hold home fenofibrate given LFT elevation on labs. Repeat CMP in 4 weeks. Constipation: continued his home lactulose and added senna/miralax to his regimen. - Additional Information Resuscitation Status: Full Code Discharge Diet: Cardiac, Diabetic Discharge Activity: Activity As Tolerated Referrals: LORY FELICIANO ANP [Primary Care Provider] - Follow up as needed Home Medications: Invega Sustenna 156 mg IM Q30D 06/02/19 Aripiprazole [Abilify 5 mg Tablet] 5 mg PO DAILY 05/20/20 Atorvastatin Calcium [Lipitor 20 mg Tablet] 20 mg PO DAILY 05/20/20 Baclofen [Baclofen 10 mg Tablet] 10 mg PO TID 05/20/20 Benztropine Mesylate [Cogentin 1 mg Tablet] 1 mg PO Q12 05/20/20 Buspirone HCl 15 mg PO Q12 05/20/20 Gabapentin 600 mg PO Q8 05/20/20 Hydrocodone/Acetaminophen [Otho 10-325 mg Tablet] 1 tab PO QIDP PRN 05/20/20 Lactulose 20 gm PO DAILY 05/20/20 Lisinopril [Zestril] 40 mg PO DAILY 05/20/20 Lorazepam 0.5 mg PO Q12 05/20/20 Naproxen 500 mg PO Q12 05/20/20 Oxybutynin Chloride [Ditropan 5 mg Tablet] 5 mg PO DAILY 05/20/20 Rifaximin [Xifaxan 550 mg Tablet] 550 mg PO Q12 05/20/20 Polyethylene Glycol 3350 [Miralax Powder 17 gm/Packet] 17 gm PO BID powd.pack 05/22/20 Risperidone [Risperdal 1 mg Tablet] 1 mg PO BID tablet 05/22/20 Sennosides/Docusate 8.6-50 mg [Senna Plus Tablet] 2 each PO BID tablet 05/22/20 History of Present Illiness History of Present Illness: MICHAELA GUIDRY is a 64 year old male with PMH of schizophrenia, bipolar disorder, HTN, HLD, obesity and chronic back pain who is under guardianship of [facility] and resides at [facility], an assisted living facility. Physical Exam Vital Signs: Temp Pulse Resp BP Pulse Ox 97.8 F 64 19 138/80 H 93 05/22/20 09:08 05/22/20 00:32 05/22/20 00:32 05/22/20 00:32 05/22/20 00:32 Intake & Output 05/21/20 05/22/20 05/23/20 06:59 06:59 06:59 Intake Total 2750 770 Balance 2750 770 Weight 88.7 kg 89.1 kg Results Laboratory Results: WBC 8.4 10^3/uL (4.0-10.5) 05/21/20 05:18 RBC 4.11 10^6/uL (4.35-5.55) L 05/21/20 05:18 Hgb 12.5 g/dL (13.5-17.0) L 05/21/20 05:18 Hct 36.2 % (37.9-51.0) L 05/21/20 05:18 MCV 88 fl (80-97) 05/21/20 05:18 MCH 30.3 pg (27.0-33.4) 05/21/20 05:18 MCHC 34.4 g/dL (32.0-36.0) 05/21/20 05:18 RDW 14.0 % (11.5-14.0) 05/21/20 05:18 Plt Count 230 10^3/uL (150-450) 05/21/20 05:18 Lymph % (Auto) 9.1 % (13-45) L 05/20/20 07:59 Millard % (Auto) 6.8 % (3-13) 05/20/20 07:59 Eos % (Auto) 0.1 % (0-6) 05/20/20 07:59 Baso % (Auto) 0.5 % (0-2) 05/20/20 07:59 Absolute Neuts (auto) 15.6 10^3/uL (1.7-8.2) H 05/20/20 07:59 Absolute Lymphs (auto) 1.7 10^3/uL (0.5-4.7) 05/20/20 07:59 Absolute Monos (auto) 1.3 10^3/uL (0.1-1.4) 05/20/20 07:59 Absolute Eos (auto) 0.0 10^3/uL (0.0-0.6) 05/20/20 07:59 Absolute Basos (auto) 0.1 10^3/uL (0.0-0.2) 05/20/20 07:59 Seg Neutrophils % 83.5 % (42-78) H 05/20/20 07:59 Sodium 139.6 mmol/L (137-145) 05/21/20 05:18 Potassium 3.8 mmol/L (3.6-5.0) 05/21/20 05:18 Chloride 110 mmol/L (98-107) H 05/21/20 05:18 Carbon Dioxide 23 mmol/L (22-30) 05/21/20 05:18 Anion Gap 7 (5-19) 05/21/20 05:18 BUN 21 mg/dL (7-20) H 05/21/20 05:18 Creatinine 0.92 mg/dL (0.52-1.25) 05/21/20 05:18 Est GFR ( Amer) > 60 (>60) 05/21/20 05:18 Est GFR (MDRD) Non-Af > 60 (>60) 05/21/20 05:18 Glucose 104 mg/dL (75-110) 05/21/20 05:18 POC Glucose 139 mg/dL (70-110) H 05/20/20 08:04 Hemoglobin A1c % 5.4 % (4.7-6.0) 05/21/20 05:18 Calcium 8.9 mg/dL (8.4-10.2) 05/21/20 05:18 Phosphorus 3.6 mg/dL (2.5-4.5) 05/21/20 05:18 Magnesium 2.2 mg/dL (1.6-2.3) 05/21/20 05:18 Total Bilirubin 0.6 mg/dL (0.2-1.3) 05/21/20 05:18 Direct Bilirubin 0.2 mg/dL (0.0-0.4) 05/21/20 05:18 Neonat Total Bilirubin Not Reportable 05/21/20 05:18 Neonat Direct Bilirubin Not Reportable 05/21/20 05:18 Neonat Indirect Bili Not Reportable 05/21/20 05:18 AST 69 U/L (17-59) H 05/21/20 05:18 ALT 62 U/L (<50) H 05/21/20 05:18 Alkaline Phosphatase 69 U/L (38-126) 05/21/20 05:18 Ammonia < 8.7 umol/L (9-33) L 05/20/20 14:55 Total Protein 6.2 g/dL (6.3-8.2) L 05/21/20 05:18 Albumin 3.4 g/dL (3.5-5.0) L 05/21/20 05:18 Lipase 24.9 U/L (23-300) 05/20/20 07:50 TSH 3.23 uIU/mL (0.47-4.68) 05/21/20 05:18 Urine Color YELLOW 05/20/20 09:43 Urine Appearance SLIGHTLY-CLOUDY 05/20/20 09:43 Urine pH 6.0 (5.0-9.0) 05/20/20 09:43 Ur Specific Laverne 1.018 05/20/20 09:43 Urine Protein NEGATIVE mg/dL (NEGATIVE) 05/20/20 09:43 Urine Glucose (UA) NEGATIVE mg/dL (NEGATIVE) 05/20/20 09:43 Urine Ketones NEGATIVE mg/dL (NEGATIVE) 05/20/20 09:43 Urine Blood NEGATIVE (NEGATIVE) 05/20/20 09:43 Urine Nitrite NEGATIVE (NEGATIVE) 05/20/20 09:43 Urine Bilirubin NEGATIVE (NEGATIVE) 05/20/20 09:43 Urine Urobilinogen NEGATIVE mg/dL (<2.0) 05/20/20 09:43 Ur Leukocyte Esterase NEGATIVE (NEGATIVE) 05/20/20 09:43 Urine WBC (Auto) 1 /HPF 05/20/20 09:43 Urine RBC (Auto) 2 /HPF 05/20/20 09:43 Squamous Epi Cells Auto <1 /HPF 05/20/20 09:43 Calcium Oxalate Cr Auto RARE /HPF 05/20/20 09:43 Urine Mucus (Auto) RARE /LPF 05/20/20 09:43 Urine Ascorbic Acid NEGATIVE (NEGATIVE) 05/20/20 09:43 Urine Opiates Screen UNCONFIRMED POSITIVE 05/20/20 09:43 Urine Methadone Screen NEGATIVE 05/20/20 09:43 Ur Barbiturates Screen NEGATIVE 05/20/20 09:43 Ur Phencyclidine Scrn NEGATIVE 05/20/20 09:43 Ur Amphetamines Screen NEGATIVE 05/20/20 09:43 U Benzodiazepines Scrn NEGATIVE 05/20/20 09:43 Urine Cocaine Screen NEGATIVE 05/20/20 09:43 U Marijuana (THC) Screen NEGATIVE 05/20/20 09:43 Serum Alcohol < 10 mg/dL (NONE DETECTED) 05/20/20 07:50 Hepatitis A IgM Ab Negative (Negative) 05/21/20 05:18 Hep Bs Antigen Negative (Negative) 05/21/20 05:18 Hep B Core IgM Ab Negative (Negative) 05/21/20 05:18 Hepatitis C Antibody <0.1 s/co ratio (0.0-0.9) 05/21/20 05:18 Influenza A (RT-PCR) NEGATIVE (NEGATIVE) 05/20/20 12:45 Influenza B (RT-PCR) NEGATIVE (NEGATIVE) 05/20/20 12:45 RSV (RT-PCR) NEGATIVE (NEGATIVE) 05/20/20 12:45 SARS-CoV-2 Rap RNA(RT-PCR) NEGATIVE (NEGATIVE) 05/20/20 12:45 Impressions: Head CT 05/20/20 08:15 IMPRESSION: 1. No acute intracranial abnormality on noncontrast CT. 2. Small chronic appearing infarct left occipital lobe. EVIDENCE OF ACUTE STROKE: NO. Acute Abdomen Series 05/20/20 08:21 IMPRESSION: Degraded evaluation for free air given lack of inclusion of the full upper abdomen/hemidiaphragms. Visualize bowel gas pattern is nonspecific with a single prominent loop of small bowel in the lower pole left abdomen. Bowel gas pattern is otherwise not obstructive. Moderate stool in the visualized colon Chest CT 05/20/20 12:11 IMPRESSION: 1. Small bilateral pleural effusions. Bilateral dependent opacities probably representing atelectasis. 2. Hepatic steatosis. Abdomen Ultrasound 05/21/20 00:00 IMPRESSION: 1. Increased echogenicity of the hepatic parenchyma suggestive of underlying diffuse hepatocellular disease most commonly hepatic steatosis. 2. 2 x 1.3 x 1.5 cm hypoechoic mass in the left hepatic lobe. Further evaluation with a contrast-enhanced liver protocol MRI or CT is recommended. Stroke Is this a Stroke Patient?: No Acute Heart Failure Is this a Heart Failure Patient?: No
[2020-05-22 11:23] VITALS: BP 154/79
== END 2020-05-22 11:40 | DRG 684 ==
LOC: ER 07:36 → EH 16:29 → 4S 17:55
PROVIDERS: ADMIT Hospitalist; ATTEND Hospitalist
DX: N17.9 Acute kidney failure, unspecified (principal); Z20.828 Contact with and (suspected) exposure to other viral communicable diseases; F20.9 Schizophrenia, unspecified; I10 Essential (primary) hypertension; E78.5 Hyperlipidemia, unspecified; F31.9 Bipolar disorder, unspecified; E66.9 Obesity, unspecified; Z68.30 Body mass index [BMI] 30.0-30.9, adult; E86.0 Dehydration; G89.29 Other chronic pain; M54.9 Dorsalgia, unspecified; R16.0 Hepatomegaly, not elsewhere classified; R41.0 Disorientation, unspecified; K59.01 Slow transit constipation; Z79.899 Other long term (current) drug therapy; Z79.891 Long term (current) use of opiate analgesic
CPT/HCPCS: 36415; 70450; 71250; 74022; 76700; 80048; 80053; 80074; 80076; 80307; 81001; 82140; 82962; 83036; 83690; 83735; 84100; 84443; 85025; 85027; 87040; 93005; 93010; 93976; 96361; 96365; 96375; 99285; 0241U; A9270-GY; C9803; J0692; J1200; J1644; J2060; J3370; J3490; J7030; J7040